=== PATIENT | female | born 1960 | race Caucasian/White ===

== ENCOUNTER 2021-08-12 21:15 | Emergency (ER) | payer BC ==
[2021-08-12] MEDS ORDERED: Dexamethasone 10 MG/ML SDV IVPUSH ONE (21:54)
[2021-08-12] MEDS ORDERED: Propofol 200 MG/20 ML SDV IVPUSH ONE (22:00)
[2021-08-12] MEDS ORDERED: Succinylcholine 200 MG/10 ML MDV IV ONE (22:10)
[2021-08-12] MEDS ORDERED: Midazolam 1 MG/ML 2 ML SDV IVPUSH ONE ×2 (22:20→22:30)
[2021-08-12] MEDS ORDERED: Rocuronium 50 MG/5 ML Vial IV ONE (22:30)
[2021-08-12 23:05] LABS: PTT,PARTIAL THROMBOPLSTIN TIME 35.8 SEC (22.8-31.4)
[2021-08-12 23:18] LABS: CHLORIDE,CL 75 mmol/L (98-107); SODIUM,NA 114 mmol/L (136-145)
--- NOTE | 2021-08-13 01:06 | EDM.PDOC ---
ED HPI GENERAL MEDICAL PROBLEM - General Chief Complaint: Respiratory Problem Stated Complaint: difficulty breathing covid positive Time Seen by Provider: 08/12/21 21:17 Source of Information: Reports: Family (Significant other) History Limitations: Reports: Respiratory Distress - History of Present Illness INITIAL COMMENTS - FREE TEXT/NARRATIVE: 61-year-old female presents to the emergency room in acute respiratory failure. Patient was tested positive for Covid on 08/04/21. She refused received a infusion on the following day. She was previously vaccinated with Materna vaccine x2 in December and second 1 in vaccine in January. She has had progressively worsening of symptoms over the past 8 days. Her significant other had noticed that she has continued to struggle with breathing and she was brought into the emergency room this evening. Upon arrival patient was notably hypoxic and cyanotic with cool extremities and molting of her skin in the lower extremities. Her respirations were running in the 40s and she was tachycardic with a heart rate in the 160s. Her O2 saturations were running in the low 80s. Patient appeared anxious, restless and was in obvious acute respiratory failure. She was only able to communicate by nodding her head. She was put on an immediate nonrebreather mask at 10 L and her oxygen saturations improved to the low 90s. She remained tachycardic. Despite elevation of her O2 saturations she continued to show signs of poor perfusion. It was elected at that point patient would need to be intubated as she was good to be an eminent respiratory arrest. Patient agreed to proceed with intubation. RELINER was called to help provide appropriate the sedation and intubation though. Rapid sequence intubation was provided using a glide scope. Number a size 7E TTE tube was used and was secured at 22 at the lips. Bilateral breath sounds were confirmed CO2 confirmation with color change the yellow. There is no difficulty with intubati on chest x-ray was ordered and completed at 2215. Patient's post intubation of vital signs showed assisted respirations at 12 O2 saturation 98% heart rate improved to 142 blood pressure was 146/71. Medications included 100 of propofol 20 mg a Rocconi him for Versed and 120 succinylcholine. Olivas catheter was placed. Additional IV placements were placed in her arms. Warm blankets were placed on the patient. Arrangements for transfer were made and confirmed to critical care at [facility]. Excepting physician was a critical care hospitalist. Patient was transferred to ground ambulance in serious but stable condition. Onset: Gradual Onset Date: 08/04/21 Duration: Day(s):, Getting Worse Location: Reports: Generalized Severity: Severe Improves with: Reports: None Worsens with: Reports: None Context: Reports: Sick Contact (Covid) Associated Symptoms: Reports: Other (Respiratory failure, hypoxic, tachypneic, molded skin, cool extremities) - Related Data Allergies Allergy/AdvReac Type Severity Reaction Status Date / Time codeine Allergy Insomnia Verified 08/12/21 23:02 Home Meds: Home Meds Adalimumab [Humira] 10 mg SQ Q14D 04/22/16 [History] Losartan/Hydrochlorothiazide [Hyzaar 100-25 Tablet] 1 each PO DAILY 04/22/16 [History] Venlafaxine [Effexor] 25 mg PO DAILY 04/22/16 [History] amLODIPine [Norvasc] 2.5 mg PO DAILY 04/22/16 [History] atorvaSTATin [Lipitor] 20 mg PO BEDTIME 04/22/16 [History] metFORMIN HCl [Metformin HCl] 1,000 mg PO BIDMEALS 04/22/16 [History] Insulin Aspart [NovoLOG] 14 unit SUBCUT TIDAC 09/30/16 [History] Sulfamethoxazole/Trimethoprim [Septra DS] 1 tab PO BID #20 tablet 09/30/16 [Rx] Tresiba 40 unit SUBCUT BEDTIME 09/30/16 [History] Past Medical History HEENT History: Reports: Impaired Vision Cardiovascular History: Reports: High Cholesterol, Hypertension Respiratory History: Reports: Asthma Musculoskeletal History: Reports: Arthritis Endocrine/Metabolic History: Reports: Diabetes, Type II Hematologic History: Reports: Blood Transfusion(s), Other (See Below) Other Hematologic History: hemolytic anemia Dermatologic History: Reports: Cellulitis, Psoriasis - Infectious Disease History Infectious Disease History: Reports: Chicken Pox, Measles, Mumps - Past Surgical History HEENT Surgical History: Reports: Oral Surgery Female Surgical History: Reports: Hysterectomy Endocrine Surgical History: Reports: Parathyroidectomy Musculoskeletal Surgical History: Reports: Arthroscopic Knee Dermatological Surgical History: Reports: Skin Biopsy Social & Family History - Tobacco Use Tobacco Use Status *Q: Former Tobacco User Used Tobacco, but Quit: Yes Month/Year Tobacco Last Used: 20 years - Caffeine Use Caffeine Use: Reports: Soda - Recreational Drug Use Recreational Drug Use: No ED ROS GENERAL - Review of Systems Review Of Systems: Unable To Obtain (Patient was in respiratory failure please see history of present illness) Reason Not Obtained: Respiratory failure ED EXAM, GENERAL - Physical Exam Exam: See Below Exam Limited By: Altered Mental Status General Appearance: Alert, Severe Distress (Respiratory) Eye Exam: Bilateral Eye: EOMI, PERRL (Pills were equal) Ears: Hearing Grossly Normal Nose: Nasal Flaring Throat/Mouth: Perioral Cyanosis, Other (Fear airway compromise) Head: Atraumatic Neck: Other (JVD) Respiratory/Chest: Respiratory Distress, Rales, Accessory Muscle Use, Retractions, Splinting Cardiovascular: JVD, Tachycardia (Pulse rate 160s) Peripheral Pulses: 0: Dorsalis Pedis (L), Dorsalis Pedis (R), 1+: Radial (L), Radial (R), 3+: Carotid (L), Carotid (R) GI/Abdominal: Soft Extremities: Mottled, Other (Bilateral upper and lower extremities were cold) Neurological: Alert, Other (Severe respiratory distress patient was unable to be verbally communicative. She was mildly confused but was able to nod to qu estions.) Psychiatric: Anxious Skin Exam: Cool, Cyanosis, Mottled Course - Vital Signs Last Recorded V/S: Last Vital Signs Temp 96.5 F L 08/12/21 21:41 Pulse 157 H 08/12/21 22:36 Resp 12 08/12/21 22:36 BP 174/90 H 08/12/21 22:36 Pulse Ox 96 08/12/21 22:36 - Orders/Labs/Meds Orders: Active Orders 24 hr Category Date Time Status CXR [Chest 1V Frontal] [CR] Stat Exams 08/12/21 21:55 Ordered Chest 1V Frontal [CR] Routine Exams 08/12/21 22:41 Ordered PROCALCITONIN [REF] Stat Lab 08/12/21 22:30 Received SED RATE [REF] Routine Lab 08/12/21 22:00 Received Labs: Laboratory Tests 08/12/21 08/12/21 08/12/21 Range/Units 22:30 22:30 22:30 WBC 24.19 H D (5.00-10.00) 10^3/uL RBC 4.75 (3.80-5.50) 10^6/uL Hgb 14.0 (12.0-16.0) g/dL Hct 43.2 (37.0-47.0) % MCV 90.9 (82.0-92.0) fL MCH 29.5 (27.0-31.0) pg MCHC 32.4 (32.0-36.0) g/dL RDW 12.2 (11.5-14.5) % Plt Count 443 H D (150-400) 10^3/uL MPV 11.0 H (7.4-10.4) fL Add Manual Diff Yes Neutrophils % (Manual) 89 H (50-70) % Band Neutrophils % 4 (4-12) % Lymphocytes % (Manual) 6 L (20-40) % Metamyelocytes % 1.0 Platelet Estimate Adequate ESR Cancelled PT 16.6 H (9.2-11.2) SEC INR 1.7 H (0.9-1.1) APTT 35.8 H (22.8-31.4) SEC D-Dimer, Quantitative (<400) ng/mL Sodium 114 L* (136-145) mmol/L Potassium 4.4 (3.5-5.1) mmol/L Chloride 75 L* (98-107) mmol/L Carbon Dioxide 11.4 L (21.0-32.0) mmol/L Anion Gap 32.0 H (5-15) mmol/L BUN 40 H (7-18) mg/dL Creatinine 1.25 H (0.51-1.17) mg/dL Est Cr Clr Drug Dosing 44.80 mL/min Estimated GFR (MDRD) 43 mL/min Glucose > 500 H (70-140) mg/dL Lactic Acid (0.4-2.0) mmol/L Calcium 8.0 L (8.7-10.3) mg/dL Total Bilirubin 1.0 (0.2-1.0) mg/dL AST 41 H (15-37) U/L ALT 27 (14-63) U/L Alkaline Phosphatase 155 H (46-116) U/L Creatine Kinase 115 (26-276) U/L Troponin I High Sens 140.600 H* (0-51.000) pg/mL C-Reactive Protein > 11.0 H (0.0-0.9) mg/dL B-Natriuretic Peptide 205 H (0-100) pg/mL Total Protein 7.5 (6.4-8.2) g/dL Albumin 1.81 L (3.40-5.00) g/dL 08/12/21 08/12/21 Range/Units 22:30 22:30 WBC (5.00-10.00) 10^3/uL RBC (3.80-5.50) 10^6/uL Hgb (12.0-16.0) g/dL Hct (37.0-47.0) % MCV (82.0-92.0) fL MCH (27.0-31.0) pg MCHC (32.0-36.0) g/dL RDW (11.5-14.5) % Plt Count (150-400) 10^3/uL MPV (7.4-10.4) fL Add Manual Diff Neutrophils % (Manual) (50-70) % Band Neutrophils % (4-12) % Lymphocytes % (Manual) (20-40) % Metamyelocytes % Platelet Estimate ESR PT (9.2-11.2) SEC INR (0.9-1.1) APTT (22.8-31.4) SEC D-Dimer, Quantitative 4550 H (<400) ng/mL Sodium (136-145) mmol/L Potassium (3.5-5.1) mmol/L Chloride (98-107) mmol/L Carbon Dioxide (21.0-32.0) mmol/L Anion Gap (5-15) mmol/L BUN (7-18) mg/dL Creatinine (0.51-1.17) mg/dL Est Cr Clr Drug Dosing mL/min Estimated GFR (MDRD) mL/min Glucose (70-140) mg/dL Lactic Acid 11.0 H (0.4-2.0) mmol/L Calcium (8.7-10.3) mg/dL Total Bilirubin (0.2-1.0) mg/dL AST (15-37) U/L ALT (14-63) U/L Alkaline Phosphatase (46-116) U/L Creatine Kinase (26-276) U/L Troponin I High Sens (0-51.000) pg/mL C-Reactive Protein (0.0-0.9) mg/dL B-Natriuretic Peptide (0-100) pg/mL Total Protein (6.4-8.2) g/dL Albumin (3.40-5.00) g/dL Meds: Medications Discontinued Medications Generic Name Dose Route Start Last Admin Trade Name Janesq PRN Reason Stop Dose Admin Dexamethasone 6 mg 08/12/21 21:54 08/12/21 22:09 Dexamethasone 10 Mg/Ml Sdv IVPUSH 08/12/21 21:55 6 mg ONETIME ONE Administration Midazolam HCl 2 mg 08/12/21 22:30 08/12/21 22:30 Midazolam 1 Mg/Ml 2 Ml Sdv IVPUSH 08/12/21 22:31 2 mg ONETIME ONE Administration Midazolam HCl 2 mg 08/12/21 22:20 08/12/21 22:40 Midazolam 1 Mg/Ml 2 Ml Sdv IVPUSH 08/12/21 22:21 2 mg ONETIME ONE Administration Propofol 100 mg 08/12/21 22:00 08/12/21 22:05 Propofol 200 Mg/20 Ml Sdv IVPUSH 08/12/21 22:01 100 mg ONETIME ONE Administration Rocuronium [place] 20 mg 08/12/21 22:30 08/12/21 22:40 Rocuronium 50 Mg/5 Ml Vial IV 08/12/21 22:31 20 mg ONETIME ONE Administration Succinylcholine Chloride 120 mg 08/12/21 22:10 08/12/21 22:05 Succinylcholine 200 Mg/10 Ml Mdv IV 08/12/21 22:11 120 mg ONETIME ONE Administration - Radiology Interpretation Free Text/Narrative:: Chest x-ray 1 view Findings: Bilateral basilar consolidations are present involving the retrocardiac region and peripheral aspect of both lower lungs, obscuring the left diaphragm. Lung volumes are decreased. Heart size is normal. No acute fracture. Impression: Bilateral pneumonia, most concentrated in the lower lung chamorro. X-ray chest 1 view comparison 08/12/212202 Findings: There are multifocal confluent consolidations in both lung bases most concentrated in the lower lobes, unchanged from prior exam Endotracheal tube tip is located 5 cm above the cornea. No pneumothorax. No pneumo mediastinum. Heart size normal. No acute fracture. Impression; Satisfactory intubation with satisfactory endotracheal tube location. - Re-Assessments/Exams Free Text/Narrative Re-Assessment/Exam: 08/13/212144 Patient is in acute respiratory failure. She is tachypneic. She is anxious. Her extremities are cool. She is tachycardic. 08/13/212214 Rapid sequence intubation was provided. Patient's heart rate had improved 142 O2 saturations were 98% blood pressure was stable at 146/71. She was assisted respirations at 12-14. Patient's perfusion was improved. Warm blankets were applied IV access additionally was placed in the right wrist. Departure - Departure Time of Disposition: 23:05 Disposition: DC/Tfer to [facility] 02 Preliminary Cause of *Q: Respiratory Failure Condition: Critical Clinical Impression: Lab test positive for detection of COVID-19 virus, Hypoxemia, Septicemia Sepsis Qualifiers: Sepsis type: sepsis due to unspecified organism Sepsis acute organ dysfunction status: with acute organ dysfunction Severe sepsis acute organ dysfunction type: acute respiratory failure Acute respiratory failure type: with hypercapnia Severe sepsis shock status: with septic shock Qualified Code(s): A41.9 - Sepsis, unspecified organism; R65.21 - Severe sepsis with septic shock; J96.02 - Acute respiratory failure with hypercapnia - Discharge Information Forms: ED Department Discharge Sepsis Event Note (ED) - Evaluation Sepsis Screening Result: Possible Sepsis Risk - Focused Exam Vital Signs: Vital Signs Temp Pulse Resp BP Pulse Ox 08/12/21 22:36 157 H 12 174/90 H 96 08/12/21 22:24 145 H 20 111/72 94 L 08/12/21 22:17 156 H 34 H 160/121 H 92 L 08/12/21 22:00 157 H 34 H 153/74 H 94 L 08/12/21 21:45 158 H 34 H 131/76 93 L 08/12/21 21:41 96.5 F L 166 H 34 H 172/102 H 85 L 08/12/21 21:35 159 H 36 H 139/89 94 L 08/12/21 21:20 90 L - My Orders Last 24 Hours: My Active Orders 08/12/21 21:55 CXR [Chest 1V Frontal] [CR] Stat 08/12/21 22:00 SED RATE [REF] Routine 08/12/21 22:30 PROCALCITONIN [REF] Stat 08/12/21 22:41 Chest 1V Frontal [CR] Routine - Assessment/Plan Last 24 Hours: My Active Orders 08/12/21 21:55 CXR [Chest 1V Frontal] [CR] Stat 08/12/21 22:00 SED RATE [REF] Routine 08/12/21 22:30 PROCALCITONIN [REF] Stat 08/12/21 22:41 Chest 1V Frontal [CR] Routine Assessment:: Acute respiratory failure Hypoxemia Sepsis Covid positive Plan: She was put on an immediate nonrebreather mask at 10 L and her oxygen saturations improved to the low 90s. She remained tachycardic. Despite elevation of her O2 saturations she continued to show signs of poor perfusion. It was elected at that point patient would need to be intubated as she was good to proceed with intubation due to to be an eminent respiratory arrest. Patient agreed to proceed with intubation. RELINER was called to help provide appropriate the sedation and intubation though. Rapid sequence intubation was provided using a glide scope. Number a size 7E TTE tube was used and was secured at 22 at the lips. Bilateral breath sounds were confirmed CO2 confirmation with color change the yellow. There is no difficulty with intubation chest x-ray was ordered and completed at 2215. Patient's post intubation of vital signs showed assisted respirations at 12 O2 saturation 98% heart rate improved to 142 blood pressure was 146/71. Medications included 100 of propofol 20 mg a Rocconi him for Versed and 120 succinylcholine. Olivas catheter was placed. Additional IV placements were placed in her arms. Warm blankets were placed on the patient. Arrangements for transfer were made and confirmed to critical care at [facility]. Excepting physician was a critical care hospitalist. Patient was transferred to ground ambulance in serious but stable condition.
[2021-08-13 01:07] VITALS: BP 174/90; PULSE 157
--- NOTE | 2021-08-13 13:21 | CR ---
[id number] RAD/RAD Chest PA or AP 1V EXAM: RAD Chest PA or AP 1V INDICATION: POST INTUBATION, CHECK PLACEMENT. COMPARISON: August 12, 2021. DISCUSSION: Interval placement of an endotracheal tube with tip approximately 3 cm above the jacky. Stable bibasilar pulmonary infiltrates. IMPRESSION: As above. George Burks DO 08/13/21 [id number] Thank you for allowing us to participate in the care of your patient.
--- NOTE | 2021-08-13 13:37 | CR ---
[id number] RAD/RAD Chest PA or AP 1V EXAM: RAD Chest PA or AP 1V INDICATION: SOB. COMPARISON: November 24, 2019. DISCUSSION: Cardiomediastinal silhouette is normal in size and contour. Bibasilar pulmonary infiltrates. No pneumothorax or pleural effusion. IMPRESSION: Bibasilar pulmonary infiltrates. Findings are likely infectious/inflammatory in nature as can be seen with atypical/viral pneumonia. This includes COVID pneumonia. George Burks DO 08/13/21 [id number] Thank you for allowing us to participate in the care of your patient.
[2021-08-15] MEDS ORDERED: Propofol 200 MG/20 ML SDV ONE (15:35)
[2021-08-15] MEDS ORDERED: Midazolam 1 MG/ML 2 ML SDV ONE (15:36)
== END 2021-08-12 23:05 ==
LOC: KA.ED 21:15
DX: A41.89 Other specified sepsis (principal); U07.1 COVID-19; R65.21 Severe sepsis with septic shock; J96.02 Acute respiratory failure with hypercapnia; J96.01 Acute respiratory failure with hypoxia; E78.00 Pure hypercholesterolemia, unspecified; I10 Essential (primary) hypertension; E11.9 Type 2 diabetes mellitus without complications; Z87.891 Personal history of nicotine dependence; Z88.5 Allergy status to narcotic agent; Z79.4 Long term (current) use of insulin; Z79.899 Other long term (current) drug therapy
CPT/HCPCS: 31500; 36415; 51702; 71045; 80053; 82550; 83605; 83880; 84145; 84484; 85025; 85379; 85610; 85652; 85730; 86140; 96374; 99285; 99285-25; J0330; J1100; J2250; J2704